=== PATIENT | male | born 1960 | race Caucasian/White ===

== ENCOUNTER 2020-04-24 15:13 | Emergency (ER) | payer MEDICARE, MEDICAID ==
[~2020-04-24] VITALS: Ht 170.2 cm; Wt 98.5 kg
[~2020-04-24 15:13] MED LIST: ALBU2TAB4 PO; ASPI-41 PO; BUDE10.2 INH; BUPR1FIL3 SL; IPRA3AMP9 IH; SITA1TAB6 PO
--- NOTE | 2020-04-24 15:44 | NUR ---
Patient states the incident from last night was reported to police. [place] gives a case number of [id number] describing the incident as the patient has stated.
[2020-04-24] MEDS ORDERED: OXYC-481 PO (17:40)
[2020-04-24] MEDS ORDERED: ondansetron/PF 4mg/2ml inj IV ONE (17:40)
[2020-04-24] MEDS ORDERED: fentaNYL/PF 50MCG/1 ML 2ML syringe IV ONE (17:40)
[2020-04-24] MEDS ORDERED: DOCU100C40 PO (17:42)
[2020-04-24] MEDS ORDERED: ketorolac trometh. 30mg/ml inj. IV ONE (18:15)
[2020-04-24 18:18] VITALS: BP 151/80
[2020-04-30] MEDS ORDERED: ATOR40TA72 PO (16:08)
[2020-04-30] MEDS ORDERED: GABA300T25 PO (16:08)
[2020-04-30] MEDS ORDERED: LISI-600 PO (16:08)
== END 2020-04-24 18:19 | disposition home or self-care (01) ==
LOC: ER 15:14
DX: S52.022A Displaced fracture of olecranon process without intraarticular extension of left ulna, initial encounter for closed fracture (principal); S50.12XA Contusion of left forearm, initial encounter; S40.012A Contusion of left shoulder, initial encounter; S00.93XA Contusion of unspecified part of head, initial encounter; S09.90XA Unspecified injury of head, initial encounter; J44.9 Chronic obstructive pulmonary disease, unspecified; E11.9 Type 2 diabetes mellitus without complications; F17.200 Nicotine dependence, unspecified, uncomplicated; I10 Essential (primary) hypertension; Z72.89 Other problems related to lifestyle; Z56.0 Unemployment, unspecified; Z79.82 Long term (current) use of aspirin; Z79.899 Other long term (current) drug therapy; W21.03XA Struck by baseball, initial encounter; Y93.64 Activity, baseball; Y92.89 Other specified places as the place of occurrence of the external cause; Y99.8 Other external cause status
CPT/HCPCS: 29105; 70450; 73060; 73080; 73110; 96374; 99284; J1885

== ENCOUNTER 2020-04-27 14:29 | Emergency (ER) | payer MEDICARE, MEDICAID ==
[~2020-04-27] VITALS: Ht 170.2 cm; Wt 102.3 kg
[~2020-04-27 14:29] MED LIST changes: +DOCU100C40 PO; +OXYC-481 PO
[2020-04-27 14:30] VITALS: BP 174/72
--- NOTE | 2020-04-27 14:48 | NUR ---
PATIENT HAS LONG ARM SPLINT WITH PARRIS WRAP INTACT X 3 DAYS. STATES HE IS HAVING PAIN IN LEFT LOWER ARM AND FEELS THAT THE SPLINT IS TOO TIGHT. FINGERS OF LEFT HAND ARE SLIGHTLY DUSKY BUT CAP REFILL IS IMMEDIATE AND LIGHT SENSATION IS PRESENT.
== END 2020-04-27 15:24 | disposition home or self-care (01) ==
LOC: ER 14:29
DX: S52.022A Displaced fracture of olecranon process without intraarticular extension of left ulna, initial encounter for closed fracture (principal); J44.9 Chronic obstructive pulmonary disease, unspecified; E11.9 Type 2 diabetes mellitus without complications; Z72.89 Other problems related to lifestyle; Z56.0 Unemployment, unspecified; Z79.82 Long term (current) use of aspirin; Z79.899 Other long term (current) drug therapy; X58.XXXA Exposure to other specified factors, initial encounter; Y93.89 Activity, other specified; Y92.89 Other specified places as the place of occurrence of the external cause; Y99.8 Other external cause status
CPT/HCPCS: 29105; 99283

== ENCOUNTER 2020-05-02 09:54 | Day surgery (SDC) | payer MEDICARE, MEDICAID ==
[2020-04-30 16:09] LABS: BASOPHILS # (AUTO) 0.1 X10'3 (0-0.2); BASOPHILS % (AUTO) 0.7 % (0-1); EOSINOPHILS # (AUTO) 0.1 X10'3 (0-0.9); EOSINOPHILS % (AUTO) 1.3 % (0-6); LYMPHOCYTES # (AUTO) 2.3 X10'3 (1.1-4.8); LYMPHOCYTES % (AUTO) 31.9 % (21-51); MEAN CORPUSCULAR HEMOGLOBIN 32.2 PG (27.0-31.0); MEAN CORPUSCULAR HGB CONC 33.5 g/dL (33.0-36.5); MEAN CORPUSCULAR VOLUME 95.9 FL (78-98); MEAN PLATELET VOLUME 8.1 FL (7.4-10.4); MONOCYTES # (AUTO) 0.6 X10'3 (0-0.9); MONOCYTES % (AUTO) 8.1 % (2-12); NEUTROPHILS # (AUTO) 4.2 X10'3 (1.8-7.7); PRE OP HEMATOCRIT 38.9 % (42.0-52.0); PRE OP PLATELET COUNT 164 X10'3 (140-440); RED BLOOD COUNT 4.05 X10'6 (4.70-6.10); RED CELL DISTRIBUTION WIDTH 14.5 % (11.5-14.5)
[2020-04-30 16:20] LABS: PRE OP INR 1.2 INR; PRE OP PROTIME 11.9 SECONDS (9.0-12.0)
[2020-04-30 16:24] LABS: ALBUMIN 3.4 G/DL (3.4-5.0); ALBUMIN/GLOBULIN RATIO 0.9 (1.1-1.5); ALKALINE PHOSPHATASE 110 IU/L (46-116); BLOOD UREA NITROGEN 5 MG/DL (7-18); BUN/CREATININE RATIO 8.6 (5.4-32.0); CALCIUM 9.1 MG/DL (8.5-10.1); CHLORIDE 105 MMOL/L (99-107); CREATININE 0.58 MG/DL (0.60-1.10); PRE OP ALT 65 U/L (30-65); PRE OP ANION GAP 11 (8-16); PRE OP AST 86 U/L (10-37); PRE OP BILIRUB, TOTAL 0.6 MG/DL (0.0-1.0); PRE OP GLUCOSE 158 MG/DL (70-104); PRE OP POTASSIUM 4.2 MMOL/L (3.4-5.1); PRE OP SODIUM 142 MMOL/L (135-145); TOTAL CARBON DIOXIDE 25.9 MMOL/L (24-32); TOTAL PROTEIN 7.3 G/DL (6.4-8.2); eGFR > 90 ML/MIN
[2020-05-02] VITALS (13 sets, daily range): BP systolic 117–147; BP diastolic 57–76
[~2020-05-02] VITALS: Ht 170.2 cm; Wt 100.3 kg
[~2020-05-02 09:54] MED LIST changes: -ALBU2TAB4 PO; -ASPI-41 PO; +ATOR40TA72 PO; -BUDE10.2 INH; -BUPR1FIL3 SL; -DOCU100C40 PO; +GABA300T25 PO; -IPRA3AMP9 IH; +LISI-600 PO; -OXYC-481 PO; +ceFAZolin 2gm in dextrose, iso 50 ML IV ONE; +famotidine 20mg tablet PO ONE; +ringers solution, lacted 1,000 ML IV SCH; +vancomycin 1,500 MG in NS 300ml IV soln IV ONE
[2020-05-02] MEDS ORDERED: BUPIVAcaine/PF 2.5 mg/ml (0.25%) 30ml vial ONE (11:56)
[2020-05-02] MEDS ORDERED: ROPIVAcaine 0.5% (5mg/ml) 30ml vial ONE ×2 (11:58)
[2020-05-02] MEDS ORDERED: LIDOcaine 2% (20mg/ml) 5ml vial ONE (11:58)
[2020-05-02] MEDS ORDERED: propofol inj 20 ML IV ONE (11:58)
[2020-05-02] MEDS ORDERED: morphine 2 MG/ML inj. syringe IV PRN (12:10)
[2020-05-02] MEDS ORDERED: fentaNYL/PF 50MCG/1 ML 2ML syringe IV PRN ×2 (12:10)
[2020-05-02] MEDS ORDERED: ringers solution, lacted 1,000 ML IV SCH (12:10)
[2020-05-02] MEDS ORDERED: labetalol 20mg/4ml (5mg/ml) syringe IV PRN (12:10)
[2020-05-02] MEDS ORDERED: hydrALAZINE 20mg/ml inj. IV PRN (12:10)
[2020-05-02] MEDS ORDERED: ondansetron/PF 4mg/2ml inj IV PRN (12:10)
[2020-05-02] MEDS ORDERED: morphine 4 MG/ML inj SYRINge IV PRN (12:10)
[2020-05-02] MEDS ORDERED: fentaNYL/PF 50MCG/1 ML 2ML syringe ONE (12:13)
[2020-05-02] MEDS ORDERED: MIDAZolam 5mg/5ml vial ONE (12:14)
[2020-05-02] MEDS ORDERED: dexamethasone sod phosphate 4mg/ml inj. ONE (12:15)
[2020-05-02] MEDS ORDERED: ondansetron/PF 4mg/2ml inj ONE (12:17)
[2020-05-02] MEDS ORDERED: sevoflurane 250ml liquid IH ONE (12:17)
--- NOTE | 2020-05-02 13:50 | NUR ---
Received from OR via [facility], accompanied by Anesthesiologist DR MANDUJANO and report given by Anesthesiologist. 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 SLING ON AND IN PLACE. Addendum: 05/02/20 at 1629 by Claudette Espnial RN Amended: Links added.
--- NOTE | 2020-05-02 15:50 | NUR ---
PT UP AND ABLE TO AMBULATE W/O DIFFICULTY, VOIDED, D/C INSTRUCTIONS GIVEN AND GONE OVER W/PT WHO VERBALIZED UNDERSTANDING, COPIES SENT HOME W/PT. PT D/CD TO HOME VIA W/C TO PRIVATE VEHICLE W/O INCIDENT. Addendum: 05/02/20 at 1632 by Claudette Espinal RN Amended: Links added.
== END 2020-05-02 15:50 | disposition home or self-care (01) ==
LOC: PAS 09:54
PROVIDERS: ATTEND Orthopaedic Surgery
DX: S52.032A Displaced fracture of olecranon process with intraarticular extension of left ulna, initial encounter for closed fracture (principal); Z20.828 Contact with and (suspected) exposure to other viral communicable diseases; G89.18 Other acute postprocedural pain; J44.9 Chronic obstructive pulmonary disease, unspecified; E11.9 Type 2 diabetes mellitus without complications; I10 Essential (primary) hypertension; E66.9 Obesity, unspecified; Z68.34 Body mass index [BMI] 34.0-34.9, adult; Z72.89 Other problems related to lifestyle; F17.210 Nicotine dependence, cigarettes, uncomplicated; Z98.890 Other specified postprocedural states; Z79.899 Other long term (current) drug therapy; Z79.01 Long term (current) use of anticoagulants; W19.XXXA Unspecified fall, initial encounter; Y93.89 Activity, other specified; Y92.89 Other specified places as the place of occurrence of the external cause; Y99.8 Other external cause status
CPT/HCPCS: 24685; 36415; 64415; 64417; 73070; 76000; 76942; 80053; 82948; 85025; 85610; 85730; 86885; 86900; 86901; 87635; 93005; A6222; C1713; C9803; J1100; J2001; J2250; J2405; J2704; J3010; J3370; J3490; J7040; A4565; A4618; A6449; A7000; J2795; J7120

== ENCOUNTER 2022-07-22 09:27 | Outpatient (CLI) | payer MEDICARE, MEDICAID ==
[~2022-07-22 09:27] MED LIST changes: -LISI-600 PO; +LISI20TA28 PO; -ceFAZolin 2gm in dextrose, iso 50 ML IV ONE; -famotidine 20mg tablet PO ONE; -ringers solution, lacted 1,000 ML IV SCH; -vancomycin 1,500 MG in NS 300ml IV soln IV ONE
[2022-07-22] MEDS ORDERED: iohexol 300mg/ml 100ml inj. ONE (10:34)
== END 2022-07-22 23:59 | disposition home or self-care (01) ==
LOC: RAD 09:27
PROVIDERS: ATTEND Nurse Practitioner Family
DX: K74.60 Unspecified cirrhosis of liver (principal); K80.20 Calculus of gallbladder without cholecystitis without obstruction; K57.30 Diverticulosis of large intestine without perforation or abscess without bleeding; K42.9 Umbilical hernia without obstruction or gangrene; R18.8 Other ascites; M47.816 Spondylosis without myelopathy or radiculopathy, lumbar region; M43.16 Spondylolisthesis, lumbar region; R16.1 Splenomegaly, not elsewhere classified; N20.0 Calculus of kidney; R74.8 Abnormal levels of other serum enzymes
CPT/HCPCS: 74177; J3490; Q9967

== ENCOUNTER 2023-06-03 14:38 | Emergency (ER) | payer MEDICARE, MEDICAID ==
[~2023-06-03] VITALS: Ht 172.7 cm; Wt 100.9 kg
[2023-06-03 14:55] VITALS: BP 141/68; PULSE 98; RESP 18; TEMP 98.8; O2SAT 95
== END 2023-06-03 17:24 | disposition home or self-care (01) ==
LOC: ER 14:38
DX: J44.9 Chronic obstructive pulmonary disease, unspecified (principal); E11.9 Type 2 diabetes mellitus without complications; K74.60 Unspecified cirrhosis of liver; F10.10 Alcohol abuse, uncomplicated; Y90.9 Presence of alcohol in blood, level not specified
CPT/HCPCS: 99281

== ENCOUNTER 2023-06-04 07:16 | Emergency (ER) | payer MEDICARE, MEDICAID ==
[~2023-06-04] VITALS: Ht 172.7 cm; Wt 100.8 kg
[2023-06-04 07:21] VITALS: TEMP 98.1
[2023-06-04 09:12] LABS: BASOPHILS % (AUTO) 0.7 % (0-1); EOSINOPHILS # (AUTO) 0.1 X10'3 (0-0.9); EOSINOPHILS % (AUTO) 1.7 % (0-6); HEMATOCRIT 38.5 % (42.0-52.0); HEMOGLOBIN 12.8 g/dl (14.0-17.9); INR 1.2 INR; LYMPHOCYTES # (AUTO) 1.1 X10'3 (1.1-4.8); MEAN CORPUSCULAR HEMOGLOBIN 29.9 PG (27.0-31.0); MEAN CORPUSCULAR HGB CONC 33.3 g/dL (33.0-36.5); MEAN CORPUSCULAR VOLUME 89.7 FL (78-98); MEAN PLATELET VOLUME 7.4 FL (7.4-10.4); MONOCYTES # (AUTO) 0.8 X10'3 (0-0.9); MONOCYTES % (AUTO) 12.1 % (2-12); NEUTROPHILS # (AUTO) 4.8 X10'3 (1.8-7.7); NEUTROPHILS % (AUTO) 69.5 % (42-75); PLATELET COUNT 138 X10'3 (140-440); PROTHROMBIN TIME 12.8 SECONDS (9.0-12.0); RED BLOOD COUNT 4.29 X10'6 (4.70-6.10); RED CELL DISTRIBUTION WIDTH 16.7 % (11.5-14.5)
[2023-06-04 10:32] LABS: ALBUMIN 2.7 G/DL (3.4-5.0); ANION GAP 10 (8-16); BLOOD UREA NITROGEN 10 MG/DL (7-18); BUN/CREATININE RATIO 11.9 (10.0-20.0); CHLORIDE 100 MMOL/L (99-107); CREATININE 0.84 MG/DL (0.60-1.10); GLUCOSE 153 MG/DL (70-104); POTASSIUM 3.6 MMOL/L (3.5-5.1); PRO BRAIN NATRIURETIC PEPTIDE 118 PG/ML (0-125); SODIUM 136 MMOL/L (135-145); TOTAL CARBON DIOXIDE 25.8 MMOL/L (24-32); eCRCL 85 ML/MIN; eGFR > 90 ML/MIN
[2023-06-04] MEDS ORDERED: iohexol 300mg/ml 100ml inj. ONE (10:42)
[2023-06-04 12:57] VITALS: BP 155/84; PULSE 83; RESP 16; O2SAT 99
[2023-06-04 13:56] VITALS: BP 139/69; PULSE 86; RESP 16; O2SAT 100
[2023-06-04 14:00] VITALS: BP 139/69; PULSE 83; RESP 18; O2SAT 100
[2023-06-04 14:00] LABS: GLUCOSE,BODY FLUID 144 MG/DL; LDH,BODY FLUID 55 U/L
[2023-06-04] MEDS ORDERED: albumin (human) 25% 100 ML IV solution IV ONE (14:00)
[2023-06-04 14:29] LABS: TOTAL PROTEIN,BODY FLUID < 2.0 G/DL
[2023-06-04 14:46] LABS: BF WBC COUNT 395 /CU MM (0-1000); BFAPPEAR HAZY; BFCOLOR YELLOW; BFSOURCE OTHER; BFVOLUME 53 ML
[2023-06-04 14:47] LABS: BF RBC COUNT 198 /CU MM
[2023-06-04 15:23] LABS: BF MESOTHELIAL CELLS MODERATE; LYMPHOCYTES,BODY FLUID 34 %; MONOCYTES,BODY FLUID 35 %; NEUTROPHILS,BODY FLUID 31 %
== END 2023-06-04 14:31 | disposition home or self-care (01) ==
LOC: ER 07:17
DX: R18.8 Other ascites (principal); E11.9 Type 2 diabetes mellitus without complications; J44.9 Chronic obstructive pulmonary disease, unspecified; Z87.81 Personal history of (healed) traumatic fracture
CPT/HCPCS: 36415; 49083; 71045; 74177; 76942; 80048; 82945; 83615; 83880; 84157; 84484; 85025; 85610; 87070; 89051; 93005; 96374; 99285; C1729; J3490; P9047; Q9967; 49082